=== PATIENT | male | born 1945 | race Caucasian/White ===

== ENCOUNTER → 2019-12-28 | Outpatient (CLI) | payer OTHER ==
[~2019-12-28] MED LIST: ASPIRIN325 PO; ATORVASTATIN CA80 MG PO; BENICAR HCT 401 EAC1 PO; BENICAR HCT 401 EACH PO; BLOOD PRESSURE MED PO; BYSTOLIC20 MG PO; CLOPIDOGREL75 MG PO; HYDROXYZINE HCL25 M2 PO; NITROGLYCERIN0.3 MG SUBLING; NITROGLYCERIN0.4 MG SUBLING; NORVASC 5 MG TAB5 MG PO; RANEXA1000 MG PO
== END ==
LOC: CAT 12:52
PROVIDERS: ATTEND Family Medicine
DX: Z12.2 Encounter for screening for malignant neoplasm of respiratory organs (principal); Z87.891 Personal history of nicotine dependence

== ENCOUNTER → 2020-01-02 | Outpatient (CLI) | payer OTHER | LOC: SJCVC 13:44 | PROVIDERS: ATTEND Internal Medicine Cardiovascular Disease | DX: I25.810 Atherosclerosis of coronary artery bypass graft(s) without angina pectoris (principal); R94.31 Abnormal electrocardiogram [ECG] [EKG]; I11.9 Hypertensive heart disease without heart failure; I73.9 Peripheral vascular disease, unspecified; J44.9 Chronic obstructive pulmonary disease, unspecified; I42.9 Cardiomyopathy, unspecified; E78.00 Pure hypercholesterolemia, unspecified; R53.83 Other fatigue; R68.89 Other general symptoms and signs; F17.210 Nicotine dependence, cigarettes, uncomplicated; Z95.1 Presence of aortocoronary bypass graft; Z79.899 Other long term (current) drug therapy ==

== ENCOUNTER → 2020-01-04 | Outpatient (CLI) | payer OTHER | LOC: SJCVCIMAG 08:30 | PROVIDERS: ATTEND Internal Medicine Cardiovascular Disease | DX: I49.3 Ventricular premature depolarization (principal); Z79.899 Other long term (current) drug therapy ==

== ENCOUNTER 2020-01-15 06:42 | Observation (INO) | payer OTHER ==
[~2020-01-15] VITALS: Ht 170.2 cm; Wt 77.1 kg
[2020-01-15 07:30] VITALS: BP 107/68
[2020-01-15] MEDS ORDERED: ZETIA10 MG PO (08:03)
--- NOTE | 2020-01-15 16:17 | CATHLAB ---
[facility] [place] [address] INVASIVE PROCEDURE REPORT Name: MARCELLA GOMEZ Room #: 207-P [facility] Juana Yu#: [id number] Admission: 01/15/20 Attend Phys: Micah Danielle MD, Discharge: Date of : 43 Report #: [id number] THIS REPORT FOR: cc: Oren Mendoza MD, Neal A. MD Mancuso, Gerald M. MD [facility] ~ APPROVED REPORT Study performed: 01/15/2020 07:31:53 Patient Details Patient Status: Out-Patient Room #: The patient is a 74 year-old male Event Personnel Micah Danielle Medicare Sales Representative, Claudine Stahl RTR Monitor, Duyen Sofia RT(R)() Contreras Wells Dexter RN occupational health technician Performed Left Heart Cath Coronaries, Bypass Grafts [id number] LHCCORCABG Art Access - R femoral artery* Aortogram Abdominal Peripheral Angio 151786 [facility] Place w/wo Plasty Single PDA 775110 Hemostasis w/ Mynx 08875 Initial Mod Sed Same Phys/QHP Gr5y 287496 84914 Mod Sed Same Phys/QHP Ea 418191 Procedure Narrative The Right Groin^ was infiltrated with 1% Lidocaine subcutaneous anesthesia. A PINNACLE 6FR Sheath #[id number] sheath was inserted into the RFA^. Coronary angiography was performed using coronary diagnostic catheters. The right coronary system was accessed and visualized with a JR4 catheter. The left coronary system was accessed and visualized with a JL4 catheter. The left ventricle was accessed and visualized with a PIGTAIL catheter. Left ventriculogram was performed in 30 degree projection. An aortogram of the abdominal aorta was performed. Closure device was deployed with a Fr MYNXGRIP 6/7F #[id number]. The patient tolerated the procedure well and there were no complications associated with the procedure. There was no hematoma. Intraoperative Conscious Sedation Sedation start time: 8:41 Case end Time: 9:51 Fentanyl 50 mcg Versed [address] [address] INVASIVE PROCEDURE REPORT Name: JASON,MARCELLA Rica Room #: 207-P [facility] IN [facility].#: [id number] Admission: 01/15/20 Attend Phys: Micah Danielle, Discharge: Date of : 43 Report #: [id number] Fluoro Time: 11.50 minutes Dose: DAP 88602.70 cGycm2 2035 mGy Contrast Type and Amount: Omnipaque 202 ml Hemodynamics The aortic pressure is 120/44 mmHg with a mean of 71 mmHg. The left ventricular pressure is 139/1 mmHg with a mean of mmHg. The left ventricular end diastolic pressure is 14 mmHg. PCI Technique Lesion Percutaneous coronary intervention was performed on the right posterior descending artery. A LAUNCHER 6FR RCB #[id number] Guide Catheter was used to engage the ostium. A Luge Wire .014 x 182CM #[id number] Interventional Guidewire was used to cross the lesion. BALLOON DILATION A Balloon catheter Sprinter OTW 2.25 x 12 #[id number] was inserted and inflated up to 8.00atm for 10seconds. Additional Inflation: 8.00atm for 19seconds. Additional Inflation: 14.00atm for 24seconds. STENT DEPLOYMENT A drug-eluting stent RESOLUTE BROOK OTW 2.5 X 12 #[id number] was inserted and inflated up to 16.00atm for 26seconds. Additional Inflation: 20.00atm for 16seconds. Conclusion #1. Successful PTCA stent of a high-grade SVG to PDA anastomosis. 90% to 0% with a 2.5 x 12 resolute brook stent CHARY grade III flow. Jailing of the posterior lateral branch remains patent. #2 the coquille right coronary artery is occluded and bypassed via #1. #3 high-grade left main giving rise to a subtotaled diagonal LAD is occluded as it is circumflex occluded #4 a BAUTISTA graft is widely patent and intact. There is a jump graft off of the BAUTISTA to the OM which is widely patent and briskly filling extensive OM system and the LAD has mild anastomotic disease from the BAUTISTA with brisk flow throughout the LAD which is well preserved and retrograde into the diagonal branch. Entire left system is filled via this BAUTISTA and jump graft as described above all widely patent. #5 the coquille LAD is occluded proximally with only filling of the diagonal branch there is subtotaled lesion #6 the coquille circumflex is proximally occluded and fills via the jump graft off of the BAUTISTA as described above [facility] [address] [place] [address] INVASIVE PROCEDURE REPORT Name: MARCELLA GOMEZ Room #: 207-P [facility] IN Aimee#: [id number] Admission: 01/15/20 Attend Phys: Micah Danielle, Discharge: Date of : 43 Report #: [id number] #7 the normal left jugular size with subtle inferior basilar hypokinesis EF 55% range #8 abdominal aorta revealing a small to moderate size infrarenal aortic aneurysm. Will correlate with noninvasive studies. Recommendations and plan: Continue aggressive risk factor modification. Dual antiplatelet therapy has been initiated. To CCU to follow post coronary stent protocol. Chest pain free and hemodynamically stable. <ELECTRONICALLY SIGNED> By: Micah Danielle MD, FACC 01/15/20 161 161 16 Micah Danielle MD, FACC /INF
--- NOTE | 2020-01-15 17:14 | NUR ---
TO THE UNIT FROM THE RAIL TRANSPORTATION OPERATOR POST STENTING. ORIENTED TO THE ROOM AND BEDSPACE. VSS AND GROIN SITE C/D/I. LIN DIET AND FLUIDS. ASSESSMENT CHARTED - NO CO'S OF PAIN OR NAUSEA. PT ABLE TO MOVE ABOUT AND GROIN SITE HAS REMAINED STABLE. NO CO'S AT THE PRESENT TIME. SIG OTHER INTO VISIT.
[2020-01-15 20:05] VITALS: BP 157/58
--- NOTE | 2020-01-15 23:53 | NUR ---
ASSESSMENTS CHARTED, MEDS CHARTED GIVEN. PATIENT UP AT JOURDAN IN ROOM AFTER HEART CATH DURING THE DAY. RIGHT GROIN IS C/D/I/AND SOFT. DENIES PAIN. PLAN OF CARE IS TO RETURN HOME IN THE MORNING. FALL PRECAUTIONS IN PLACE DURING SHIFT.
[2020-01-16 04:27] VITALS: BP 145/75
[2020-01-16 05:40] LABS: ALBUMIN 3.7 g/dL (3.4-5.0); ANION GAP 7 mmol/L (7-16); BUN 13 mg/dL (7-18); CALCIUM 8.5 mg/dL (8.5-10.1); CHLORIDE 98 mmol/L (98-107); CO2 26 mmol/L (21-32); CREATININE 0.9 mg/dL (0.7-1.3); GLUCOSE 88 mg/dL (74-106); SGOT 23 U/L (15-37); SGPT 25 U/L (30-65); SODIUM 131 mmol/L (136-145); TOTAL BILIRUBIN 0.8 mg/dL (0.2-1.0); TROPONIN-I <0.06 ng/mL (<0.06)
[2020-01-16 05:58] LABS: HEMATOCRIT 44.7 % (42.0-52.0); HEMOGLOBIN 15.5 gm/dL (14.0-18.0); MCH 31.3 pg (26.0-34.0); MCHC 34.8 g/dL (28.0-37.0); RBC 4.96 mil/uL (4.50-6.00); RDW 13.5 % (10.5-14.5); WBC 10.2 thou/uL (4.0-11.0)
[2020-01-16] MEDS ORDERED: EFFIENT10 MG PO (07:23)
--- NOTE | 2020-01-16 07:43 | EKG ---
[facility] [place] [address] ELECTROCARDIOGRAM REPORT Name: MARCELLA GOMEZ Room #: 207-[facility] M.R.#: [id number] Admission: 01/15/20 Attend Phys: Micah Danielle MD, Discharge: Date of : 43 Report #: [id number] THIS REPORT FOR: cc: Oren Mendoza MD, Neal A. MD Santiago, Patrick MD [facility] ~ THIS REPORT FOR: //name// [facility] Test Date: 2020-01-16 Test Time: 07:13:51 Pat Name: MARCELLA GOMEZ Department: Room: 207 P Gender: M Lard Refiner: BETHEL : 1945 Requested By: Dacia Dimas Order Number: [id number] MD: Adeel Antunez Measurements Intervals Leonard Rate: 52 P: 96 CO: 182 QRS: 48 QRSD: 108 T: 89 QT: 442 QTc: 411 Interpretive Statements Sinus rhythm Atrial premature complex Probable LVH with secondary repol abnrm Abnormal inferior Q waves Baseline wander in lead(s) V4 Compared to ECG 08/09/2004 07:20:41 Atrial premature complex(es) now present Inferior Q waves now present ST (T wave) deviation no longer present Possible ischemia no longer present Electronically Signed On 01-16-2020 7:43:02 CDT by Adeel Antunez [email or web address] <ELECTRONICALLY SIGNED> By: Adeel Antunez MD, [facility] 01/16/20742 2 2 Adeel Antunez MD, [facility] /EPI
[2020-01-16 08:14] VITALS: BP 156/65
[2020-01-16 10:41] VITALS: BP 156/65
--- NOTE | 2020-01-16 11:03 | NUR ---
ASSESSMENT CHARTED - MEDS PER HEATHER CEBALLOS DIET AND FLUIDS. GROIN SITE C/D/I. NO CO'S OF PAIN OR NAUSEA. UP AD ;IB IN ROOM AND ON UNIT. PT HOME THIS AM - INSTRUCTION RE HOME MEDS/ CARE AND FOLLOW UP GIVEN TO PATIENT - STATED UNDERSTANDING OF INSTRUCTION GIVEN. PT LEFT UNIT AMBULATORY ACCOMAPNAIED BY NURSE. HOME VIA PVT VEHICLE ACCOMPANIED BY PARTNER. NO CO'S AT TIME OF D/C.
== END 2020-01-16 10:55 | disposition home or self-care (01) ==
LOC: CATH 06:42 → TBA 09:56 → 2N 11:36 → CATH 13:24 → 2N 01-16 10:55
PROVIDERS: Nurse Practitioner Adult Health; ADMIT Internal Medicine Cardiovascular Disease; ATTEND Internal Medicine Cardiovascular Disease
DX: I25.10 Atherosclerotic heart disease of native coronary artery without angina pectoris (principal); I10 Essential (primary) hypertension; E78.5 Hyperlipidemia, unspecified; I71.4 Abdominal aortic aneurysm, without rupture; I65.29 Occlusion and stenosis of unspecified carotid artery; I42.9 Cardiomyopathy, unspecified; E78.00 Pure hypercholesterolemia, unspecified; Z79.899 Other long term (current) drug therapy; Z95.1 Presence of aortocoronary bypass graft

== ENCOUNTER → 2020-05-13 | Outpatient (CLI) | payer OTHER ==
[~2020-05-13] MED LIST changes: +EFFIENT10 MG PO; +ZETIA10 MG PO
== END ==
LOC: SJCVCIMAG 14:56 → SJCVC 14:56 → SJCVCIMAG 15:00
PROVIDERS: ATTEND Internal Medicine Cardiovascular Disease
DX: I25.10 Atherosclerotic heart disease of native coronary artery without angina pectoris (principal); I77.811 Abdominal aortic ectasia; R94.31 Abnormal electrocardiogram [ECG] [EKG]; I11.9 Hypertensive heart disease without heart failure; I65.23 Occlusion and stenosis of bilateral carotid arteries; E78.00 Pure hypercholesterolemia, unspecified; J44.9 Chronic obstructive pulmonary disease, unspecified; I42.9 Cardiomyopathy, unspecified; F17.210 Nicotine dependence, cigarettes, uncomplicated; Z95.1 Presence of aortocoronary bypass graft; Z98.890 Other specified postprocedural states; Z79.82 Long term (current) use of aspirin; Z79.899 Other long term (current) drug therapy; Z82.49 Family history of ischemic heart disease and other diseases of the circulatory system

== ENCOUNTER → 2020-07-08 | Outpatient (CLI) | payer OTHER | LOC: SJCVCIMAG 09:00 | PROVIDERS: ATTEND Internal Medicine Cardiovascular Disease | DX: I65.23 Occlusion and stenosis of bilateral carotid arteries (principal); I25.810 Atherosclerosis of coronary artery bypass graft(s) without angina pectoris; I73.9 Peripheral vascular disease, unspecified; I25.5 Ischemic cardiomyopathy; I71.4 Abdominal aortic aneurysm, without rupture; E78.00 Pure hypercholesterolemia, unspecified; I10 Essential (primary) hypertension; J44.9 Chronic obstructive pulmonary disease, unspecified; I42.9 Cardiomyopathy, unspecified; E78.5 Hyperlipidemia, unspecified; Z95.1 Presence of aortocoronary bypass graft; F17.210 Nicotine dependence, cigarettes, uncomplicated; Z79.899 Other long term (current) drug therapy ==

== ENCOUNTER → 2021-01-01 | Outpatient (CLI) | payer OTHER | LOC: CAT 10:23 | PROVIDERS: ATTEND Family Medicine | DX: Z12.2 Encounter for screening for malignant neoplasm of respiratory organs (principal); R91.1 Solitary pulmonary nodule; I70.0 Atherosclerosis of aorta; Z87.891 Personal history of nicotine dependence ==

== ENCOUNTER → 2021-01-21 | Outpatient (CLI) | payer OTHER | LOC: SJCVCIMAG 09:01 | PROVIDERS: ATTEND Internal Medicine Cardiovascular Disease | DX: I25.9 Chronic ischemic heart disease, unspecified (principal); I49.3 Ventricular premature depolarization; I25.810 Atherosclerosis of coronary artery bypass graft(s) without angina pectoris; I10 Essential (primary) hypertension; E78.00 Pure hypercholesterolemia, unspecified; I73.9 Peripheral vascular disease, unspecified; I71.4 Abdominal aortic aneurysm, without rupture; I65.23 Occlusion and stenosis of bilateral carotid arteries; J44.9 Chronic obstructive pulmonary disease, unspecified; E78.5 Hyperlipidemia, unspecified; F17.210 Nicotine dependence, cigarettes, uncomplicated; Z95.1 Presence of aortocoronary bypass graft; Z79.82 Long term (current) use of aspirin; Z79.899 Other long term (current) drug therapy; Z95.818 Presence of other cardiac implants and grafts ==